=== PATIENT | female | born 1970 ===

== ENCOUNTER 2017-09-23 14:40 | Observation (INO) | payer OTHER ==
[2017-09-23 14:51] VITALS: BMI 30.2
[2017-09-23] MEDS ORDERED: Sodium Chloride 0.9% 1,000 ML IV ONE (15:57)
--- NOTE | 2017-09-23 17:12 | C.PDOC ---
Time Seen by Provider: 09/23/17 15:38 Chief Complaint (Nursing): Abdominal Pain History Per: Patient Onset/Duration Of Symptoms: Days (about 1 week) Current Symptoms Are (Timing): Worse Severity: Moderate Location Of Pain/Discomfort: Suprapubic Radiation Of Pain To:: Back Quality Of Discomfort: "Pain" Associated Symptoms: Fever, Nausea, Back Pain, Urinary Symptoms Alleviating Factors: None Last Bowel Movement: Today Additional History Per: Prior Records Past Medical History Reviewed: Historical Data, Nursing Documentation, Vital Signs Vital Signs: Last Vital Signs Temp 98 F 09/23/17 14:51 Pulse 94 H 09/23/17 14:51 Resp 18 09/23/17 14:51 BP 132/93 H 09/23/17 14:51 Pulse Ox 96 09/23/17 17:12 - Medical History PMH: Anemia, Arthritis, Colonic Polyps (TUBULAR), Depression, Fibromyalgia, Gastritis, HTN, Kidney Stones (BOTH KIDNEYS), Osteoporosis, Chronic Kidney Disease Surgical History: Cholecystectomy, Endoscopy (5 YEARS AGO) Other Surgeries: Hysterectomy. Lap band. - [facility] Procedures EXCISION OF LEFT OVARY, OPEN APPROACH (07/24/16) RELEASE BILATERAL FALLOPIAN TUBES, PERC ENDO APPROACH (07/24/16) RELEASE BILATERAL OVARIES, OPEN APPROACH (07/24/16) RELEASE UTERUS, OPEN APPROACH (07/24/16) RESECTION OF BILATERAL FALLOPIAN TUBES, OPEN APPROACH (07/24/16) RESECTION OF CERVIX, OPEN APPROACH (07/24/16) RESECTION OF UTERUS, OPEN APPROACH (07/24/16) Family History: States: Unknown Family Hx - Social History Hx Alcohol Use: No Hx Substance Use: No - Immunization History Hx Tetanus Toxoid Vaccination: No Hx Influenza Vaccination: No Hx Pneumococcal Vaccination: Yes Review Of Systems Except As Marked, All Systems Reviewed And Found Negative. Constitutional: Positive for: Fever Cardiovascular: Negative for: Chest Pain Respiratory: Negative for: Cough, Shortness of Breath Gastrointestinal: Positive for: Abdominal Pain. Negative for: Vomiting, Diarrhea Genitourinary: Positive for: Dysuria, Frequency Musculoskeletal: Positive for: Back Pain. Negative for: Neck Pain Skin: Negative for: Rash Neurological: Negative for: Weakness, Numbness Physical Exam - Physical Exam Appears: Non-toxic, Other (Uncomfortable) Skin: Normal Color, Warm, Dry, No Rash Head: Atraumatic, Normacephalic Eye(s): bilateral: Normal Inspection, PERRL, EOMI Oral Mucosa: Moist Neck: Normal ROM, Supple Cardiovascular: Rhythm Regular Respiratory: Normal Breath Sounds, No Accessory Muscle Use Gastrointestinal/Abdominal: Tenderness, Distention Back: CVA Tenderness (right) Extremity: Normal ROM Neurological/Psych: Oriented x3, Normal Motor, Normal Sensation ED Course And Treatment - Laboratory Results Result Diagrams: 09/23/17 17:55 09/23/17 17:55 O2 Sat by Pulse Oximetry: 96 Pulse Ox Interpretation: Normal - CT Scan/US CT abd/pelv Other Rad Studies (CT/US): Read By Radiologist, Radiology Report Reviewed CT/US Interpretation: IMPRESSION: The uterus is not identified consistent with hysterectomy. Bilateral complex cystic adnexal lesions possibly ovarian cystic masses (2.9 x 5.5 cm on the right and 5.4 x 3.6 cm on the left). Recommend pelvic ultrasound for further evaluation. Moderate to severe diffuse constipation. Nonobstructing bilateral renal calculi. No hydronephrosis identified. Distended urinary bladder appears otherwise grossly unremarkable. Gastric lap band. Cholecystectomy clips. Additional findings as above. Progress - Interventions Interventions:: Observation, Intravenous fluid - Medications Administered Intravenous: Other (Abx) - Data Reviewed Data Reviewed: Lab, Diagnostic imaging, Old records - Continuity of Care Discussed patient case with:: Patient, ED Nurse, On-call PMD-pt unassigned Disposition Discussed With : Lee Delgado Comment: He accepted pt on hospitalist service. Counseled Patient/Family Regarding: Studies Performed, Diagnosis - Disposition Disposition: HOSPITALIZED Disposition Time: 18:47 Condition: FAIR - Clinical Impression Clinical Impression: Acute pyelonephritis
--- NOTE | 2017-09-23 17:38 | CT ---
PROCEDURE: CT Abdomen and Pelvis without Oral or IV contrast. HISTORY: Abd pain and distension. Urinary symptoms. COMPARISON: CT abdomen and pelvis with IV contrast performed 09/14/16 TECHNIQUE: Contiguous axial images of the abdomen and pelvis. No oral or IV contrast administered. Coronal and Sagittal reformats generated and reviewed. Radiation dose: Total exam DLP = 552.15 mGy-cm. This CT exam was performed using one or more of the following dose reduction techniques: Automated exposure control, adjustment of the mA and/or kV according to patient size, and/or use of iterative reconstruction technique. FINDINGS: There is limited evaluation of the solid organs without the administration of IV contrast. LOWER THORAX: No visible consolidation, pleural effusion, or pneumothorax. Small hiatal hernia/distal esophageal wall thickening. LIVER: Unremarkable unenhanced appearance. GALLBLADDER AND BILE DUCTS: Cholecystectomy clips. PANCREAS: Unremarkable unenhanced appearance. SPLEEN: Unremarkable unenhanced appearance. ADRENALS: Unremarkable unenhanced appearance. KIDNEYS AND URETERS: No hydronephrosis or obstructing renal calculus. Bilateral nonobstructing renal calculi. BLADDER: Distended urinary bladder appears otherwise grossly unremarkable. REPRODUCTIVE: The uterus is not identified consistent with hysterectomy. Bilateral complex cystic adnexal lesions possibly ovarian cystic masses (2.9 x 5.5 cm on the right and 5.4 x 3.6 cm on the left). Recommend pelvic ultrasound for further evaluation. APPENDIX: The appendix appears within normal limits of caliber. No secondary signs of acute appendicitis. BOWEL: Gastric lap band. The stomach is nondistended. Lack of oral contrast limits evaluation for bowel pathology. The bowel loops appear within normal limits of caliber without evidence of intestinal obstruction. Moderate to severe diffuse constipation. PERITONEUM: No significant free fluid. No definite free air. LYMPH NODES: No bulky lymphadenopathy identified. VASCULATURE: No aortic aneurysm. BONES: No acute osseous abnormality is detected. OTHER FINDINGS: None. IMPRESSION: The uterus is not identified consistent with hysterectomy. Bilateral complex cystic adnexal lesions possibly ovarian cystic masses (2.9 x 5.5 cm on the right and 5.4 x 3.6 cm on the left). Recommend pelvic ultrasound for further evaluation. Moderate to severe diffuse constipation. Nonobstructing bilateral renal calculi. No hydronephrosis identified. Distended urinary bladder appears otherwise grossly unremarkable. Gastric lap band. Cholecystectomy clips. Additional findings as above.
[2017-09-23 17:59] LABS: BASO # 0.1 K/uL (0.0-0.2); BASO % 0.7 % (0.0-2.0); EOS # 0.3 K/uL (0.0-0.7); HEMOGLOBIN 10.6 g/dL (11.0-16.0); LYMPH # 2.4 K/uL (1.0-4.3); LYMPH % 26.3 % (20.0-40.0); MEAN CELL VOLUME 75.1 fL (81.0-99.0); MEAN CORPUSCULAR HEMOGLOBIN 23.5 pg (27.0-31.0); MEAN CORPUSCULAR HGB CONC 31.3 g/dL (33.0-37.0); MEAN PLATELET VOLUME 8.6 fL (7.2-11.7); MONO # 0.4 K/uL (0.0-0.8); MONO % 4.5 % (0.0-10.0); NEUT # 5.9 K/uL (1.8-7.0); NEUT % 65.5 % (50.0-75.0); NRBC % 0.1 % (0.0-2.0); RBC 4.5 Mil/uL (3.80-5.20); RED CELL DISTRIBUTION WIDTH 18.6 % (11.5-14.5)
[2017-09-23] MEDS ORDERED: Sodium Chloride 0.9% 1,000 ML ONE (18:05)
[2017-09-23 18:14] LABS: SQUAMOUS EPITHIAL 7 /hpf (0-5); URINE BACTERIA MANY (<OCC); URINE BILIRUBIN NEGATIVE (NEGATIVE); URINE BLOOD NEGATIVE (NEGATIVE); URINE CLARITY Hazy (Clear); URINE COLOR Yellow (YELLOW); URINE GLUCOSE (UA) NORMAL (Normal); URINE LEUKOCYTE ESTERASE 1+ Leu/uL (Negative); URINE PROTEIN NEGATIVE (NEGATIVE); URINE UROBILINOGEN NORMAL mg/dL (0.2-1.0)
[2017-09-23 18:25] LABS: ALB/GLOB RATIO 1.2 (1.0-2.1); ALT/SGPT 19 U/L (9-52); AST/SGOT 28 U/L (14-36); BLOOD UREA NITROGEN 8 mg/dL (7-17); CALCIUM 8.9 mg/dl (8.6-10.4); GFR AFRICAN-AMERICAN > 60; GFR NON-AFRICAN AMERICAN > 60; LIPASE 116 U/L (23-300)
[2017-09-23] MEDS ORDERED: cefTRIAXone IV 1 gm in Dextros 50 ML IVPB STA (18:35)
--- NOTE | 2017-09-23 19:05 | CP.PCM.HP ---
<Samuel Horowitz Delmy - Last Filed: 09/24/17 02:23> History of Present Illness - History of Present Illness History of Present Illness: CC: Back pain, dysuria, fever HPI: Patient is a 46 year old female, with PMHx of recurrent UTIs, ulcerative colitis in remission, tubular polyps, depression, fibromyalgia, gastritis, bilateral nephrolithiasis, osteoporosis, with pertinent hx of hysterectomy (performed bc of fibroids and resulting anemia) in July 2015. Patient states that starting 1 week ago she began having pain on urination, burning and "bladder spasm" and that these symptoms became progressively worse. Of note, she also states that she feels as if she's retaining urine. She also endorsed nausea and subjective fevers. She says this is her 10th UTI since her hysterectomy in 07/2015. She was admitted to [facility] 1 month ago for similar symptoms. Upon discharge she completed her course of antibiotics. She was told to follow-up with Urologist Dr Hannah but was unable to do so because of insurance issues. PMHx: Anemia, Colonic tubular polyps, Depression, Fibromyalgia, Gastritis, EGD, B/l neprolithiasis, Osteoporosis, Dry eye syndrome PSHx: 3 c-sections: no complications; Ureteral stent (2014), Hysterectomy (2016) - total abdominal hysterectomy, bilateral salpingectomy, extensive adhesions from prior c-sections noted, Cholecystectomy, Gastric Lap Band Fam Hx: Aunt with Crohn's disease and Colon CA, 2 cousins with ulcerative colitis Home meds: Gabapentin 600mg PO TID (for fibromyalgia), Feosol 325mg PO QD, Vitamin D 2000u 2 tabs PO QD Allergies: denies Social Hx: tobacco - 1/2 ppd x 2 yrs in 20's; alcohol - occasional glass of wine with dinner; Drugs- denies; Living: [place] - lives with ; Job : works as homemaker Present on Admission - Present on Admission Any Indicators Present on Admission: No Review of Systems - Constitutional Constitutional: Chills, Fever. absent: Weakness - EENT Eyes: absent: Change in Vision - Cardiovascular Cardiovascular: absent: Chest Pain, Chest Pain with Activity, Diaphoresis, Dyspnea on Exertion, Lightheadedness - Respiratory Respiratory: absent: Cough, Hemoptysis, Dyspnea on Exertion, Wheezing - Gastrointestinal Gastrointestinal: Abdominal Pain, Bloating, Nausea. absent: Constipation, Diarrhea, Heartburn - Genitourinary Genitourinary: Change in Urinary Stream, Dysuria, Flank Pain, Urinary Hesitance , Bladder Distension. absent: Hematuria - Musculoskeletal Musculoskeletal: Back Pain - Integumentary Integumentary: absent: Bleeding Lesions Past Patient History - Infectious Disease Hx of Infectious Diseases: None - Past Medical History & Family History Past Medical History?: Yes - Past Social History Smoking Status: Never Smoked - CARDIAC Hx Hypertension: Yes - PULMONARY Hx Respiratory Disorders: No - NEUROLOGICAL Hx Neurological Disorder: Yes - HEENT Hx HEENT Problems: No Other/Comment: CHRONIC DRY EYES. - RENAL Hx Chronic Kidney Disease: Yes Hx Kidney Stones: Yes (BOTH KIDNEYS) - ENDOCRINE/METABOLIC Hx Endocrine Disorders: No - HEMATOLOGICAL/ONCOLOGICAL Hx Anemia: Yes - INTEGUMENTARY Hx Dermatological Problems: Yes Other/Comment: CANCEROUS LESION 3X REMOVED LEFT UPPER BACK. Anal tag - MUSCULOSKELETAL/RHEUMATOLOGICAL Hx Arthritis: Yes Hx Osteoporosis: Yes - GASTROINTESTINAL Hx Gastritis: Yes - GENITOURINARY/GYNECOLOGICAL Hx Genitourinary Disorders: Yes Other/Comment: HX: removed UTERINE FIBROID - PSYCHIATRIC Hx Depression: Yes Hx Substance Use: No - SURGICAL HISTORY Hx Cholecystectomy: Yes - ANESTHESIA Hx Anesthesia: Yes Hx Anesthesia Reactions: No Hx Malignant Hyperthermia: No Meds Allergies/Adverse Reactions: Allergies Allergy/AdvReac Type Severity Reaction Status Date / Time No Known Allergies Allergy Verified 09/23/17 14:50 Physical Exam - Constitutional Appears: No Acute Distress Additional comments: Appeared uncomfortable - Head Exam Head Exam: ATRAUMATIC, NORMAL INSPECTION - Eye Exam Eye Exam: EOMI Pupil Exam: PERRL - ENT Exam ENT Exam: Mucous Membranes Moist - Neck Exam Neck exam: Positive for: Normal Inspection. Negative for: Tenderness - Respiratory Exam Respiratory Exam: Clear to Auscultation Bilateral, NORMAL BREATHING PATTERN. absent: Rales, Rhonchi, Wheezes - Cardiovascular Exam Cardiovascular Exam: REGULAR RHYTHM, +S1, +S2. absent: Bradycardia, Tachycardia , JVD, Systolic Murmur - GI/Abdominal Exam GI & Abdominal Exam: Distended, Firm, Normal Bowel Sounds, Tenderness. absent: Guarding, Hernia, Mass, Organomegaly, Rebound Additional comments: Suprapubic tenderness to deep palpation Distended most prominent in lower quadrants No rebound, no gaurding Normal bowel sounds - Rectal Exam Rectal Exam: Deferred - Exam Exam: Bladder Distension - Extremities Exam Extremities exam: Positive for: normal capillary refill, normal inspection, pedal pulses present. Negative for: pedal edema, tenderness - Back Exam Back exam: CVA tenderness (R), NORMAL INSPECTION. absent: CVA tenderness (L), paraspinal tenderness, rash noted, vertebral tenderness - Neurological Exam Neurological exam: Alert, CN II-XII Intact, Oriented x3 - Skin Skin Exam: Intact, Normal Color, Warm Results - Vital Signs Recent Vital Signs: Last Vital Signs Temp 98 F 09/23/17 14:51 Pulse 94 H 09/23/17 14:51 Resp 18 09/23/17 14:51 BP 132/93 H 09/23/17 14:51 Pulse Ox 96 09/23/17 18:52 - Labs Result Diagrams: 09/23/17 17:55 09/23/17 17:55 Labs: Laboratory Results - last 24 hr 09/23/17 09/23/17 09/23/17 17:55 17:55 18:05 WBC 9.0 RBC 4.50 Hgb 10.6 L Hct 33.8 L MCV 75.1 L MCH 23.5 L MCHC 31.3 L RDW 18.6 H Plt Count 288 MPV 8.6 Neut % (Auto) 65.5 Lymph % (Auto) 26.3 [place] % (Auto) 4.5 Eos % (Auto) 3.0 Baso % (Auto) 0.7 Neut # (Auto) 5.9 Lymph # (Auto) 2.4 [place] # (Auto) 0.4 Eos # (Auto) 0.3 Baso # (Auto) 0.1 Sodium 140 Potassium 3.9 Chloride 105 Carbon Dioxide 22 Anion Gap 17 BUN 8 Creatinine 0.6 L Est GFR ( Amer) > 60 Est GFR (Non-Af Amer) > 60 Random Glucose 84 Calcium 8.9 Total Bilirubin 0.3 AST 28 ALT 19 Alkaline Phosphatase 93 Total Protein 7.4 Albumin 4.0 Globulin 3.4 Albumin/Globulin Ratio 1.2 Lipase 116 Urine Color Yellow Urine Clarity Hazy Urine pH 6.0 Ur Specific [place] 1.008 Urine Protein Negative Urine Glucose (UA) Normal Urine Ketones Negative Urine Blood Negative Urine Nitrate Positive H Urine Bilirubin Negative Urine Urobilinogen Normal Ur Leukocyte Esterase 1+ H Urine WBC (Auto) 10 H Urine RBC (Auto) 2 Ur Squamous Epith Cells 7 H Urine Bacteria Many H Assessment & Plan (1) Recurrent UTI Assessment and Plan: Pt reports ~10th UTI since hysterectomy in 07/2015 Complains of urinary retention in addition to fever, nausea, R>L CVA tenderness , dysuria Afebrile, No leukocytosis Differential includes: Gabapentin induced neurogenic bladder (onset of sx correlate with onset of UTIs), Perimenopausal induced urethral irritation, Anterior bladder prolapse/vaginal prolapse Straight catheterization showed only 300cc of normal appearing urine Urinalysis (+) for Nitrate, Leukocyte esterase, WBCs, Bacteria, (+) for squamous epithelium (contaminated sample?) F/U repeat Urinalysis F/U FSH, LH, Estrogen Level Meds: Tylenol 650mg PO Q6H PRN for temp >100.4 Zofran 4mg IV Q6H PRN for nausea/vomiting Colace 100mg PO BID for constipation Miralax 17g PO ONCE 09/23/17 Ciprofloxacin 500mg PO BID Imaging: CT abd/pelvis w/o contrast: The uterus is not identified consistent with hysterectomy. Bilateral complex cystic adnexal lesions possibly ovarian cystic masses (2.9 x 5.5 cm on the right and 5.4 x 3.6 cm on the left). Recommend pelvic ultrasound for further evaluation. Moderate to severe diffuse constipation. Nonobstructing bilateral renal calculi. No hydronephrosis identified. Distended urinary bladder appears otherwise grossly unremarkable. Status: Acute (2) Fibromyalgia Assessment and Plan: Cont home med Gabapentin 600mg PO TID Status: Chronic Priority: High (3) Prophylactic measure Assessment and Plan: SCDs, Lovenox 40mg SC QD GI propylaxsis not indicated Heart healthy diet Status: Acute <Cole Johnston P - Last Filed: 09/24/17 07:32> Results - Vital Signs Recent Vital Signs: Last Vital Signs Temp 98.5 F 09/24/17 00:28 Pulse 96 H 09/24/17 00:28 Resp 20 09/24/17 00:28 BP 128/85 09/24/17 00:28 Pulse Ox 95 09/24/17 00:28 - Labs Result Diagrams: 09/23/17 17:55 09/23/17 17:55 Labs: Laboratory Results - last 24 hr 09/23/17 09/23/17 09/23/17 17:55 17:55 18:05 WBC 9.0 RBC 4.50 Hgb 10.6 L Hct 33.8 L MCV 75.1 L MCH 23.5 L MCHC 31.3 L RDW 18.6 H Plt Count 288 MPV 8.6 Neut % (Auto) 65.5 Lymph % (Auto) 26.3 [place] % (Auto) 4.5 Eos % (Auto) 3.0 Baso % (Auto) 0.7 Neut # (Auto) 5.9 Lymph # (Auto) 2.4 [place] # (Auto) 0.4 Eos # (Auto) 0.3 Baso # (Auto) 0.1 Sodium 140 Potassium 3.9 Chloride 105 Carbon Dioxide 22 Anion Gap 17 BUN 8 Creatinine 0.6 L Est GFR ( Amer) > 60 Est GFR (Non-Af Amer) > 60 Random Glucose 84 Calcium 8.9 Total Bilirubin 0.3 AST 28 ALT 19 Alkaline Phosphatase 93 Total Protein 7.4 Albumin 4.0 Globulin 3.4 Albumin/Globulin Ratio 1.2 Lipase 116 Urine Color Yellow Urine Clarity Hazy Urine pH 6.0 Ur Specific [place] 1.008 Urine Protein Negative Urine Glucose (UA) Normal Urine Ketones Negative Urine Blood Negative Urine Nitrate Positive H Urine Bilirubin Negative Urine Urobilinogen Normal Ur Leukocyte Esterase 1+ H Urine WBC (Auto) 10 H Urine RBC (Auto) 2 Ur Squamous Epith Cells 7 H Urine Bacteria Many H 09/23/17 22:43 WBC RBC Hgb Hct MCV MCH MCHC RDW Plt Count MPV Neut % (Auto) Lymph % (Auto) [place] % (Auto) Eos % (Auto) Baso % (Auto) Neut # (Auto) Lymph # (Auto) [place] # (Auto) Eos # (Auto) Baso # (Auto) Sodium Potassium Chloride Carbon Dioxide Anion Gap BUN Creatinine Est GFR ( Amer) Est GFR (Non-Af Amer) Random Glucose Calcium Total Bilirubin AST ALT Alkaline Phosphatase Total Protein Albumin Globulin Albumin/Globulin Ratio Lipase Urine Color [place] Urine Clarity Hazy Urine pH 6.0 Ur Specific [place] 1.011 Urine Protein Negative Urine Glucose (UA) Normal Urine Ketones Negative Urine Blood Negative Urine Nitrate Positive H Urine Bilirubin Negative Urine Urobilinogen 4.0 H Ur Leukocyte Esterase 1+ H Urine WBC (Auto) 108 H Urine RBC (Auto) 4 H Ur Squamous Epith Cells 4 Urine Bacteria Rare Attending/Attestation - Attestation I have personally seen and examined this patient.: Yes I have fully participated in the care of the patient.: Yes I have reviewed all pertinent clinical information: Yes Notes (Text): Assessment * Recurrent bladder irritation symptoms responding with antibiotics suggesting atleast secondary or primary uti, incomplete bladder evacuation, increased bladder frequency, suprapubic discomfort, but came as routine visit with these chronic symptoms, without new events. In hospital afebrile, normal wbc count and clinical exam not in distress. DD Since symptoms started after hystrectomy with prior scarring possibility of hypogastric plexus injury, with secondary detrusor and sphinter irritation, and uinary retention DD of permenopausal changes will check fsh, lh and estrogen levels DD of bladder prolapse will need pelvic exam patient differed last night will do this am DD neuropathy by gabapentin 2% in uptodate likely form neuropathy, co relates with duration of increased dose * B/l cystic ovaries should be followed up with f/u usg and complaint coordinator * h/o lap band surg * B/l inflammatory bowel disease not on treatment now Plan FSH, LH, estrogen level f/u culture from catheter sample pelvic exam this am consider changing dosing of gabapentin Pelvic usg Post void bladder scan check if retention > 200, may need second bladder emptying, trial of flomax, vs oxybutynin considering sphincter or detrusor irritability Oral cipro as prior bact has been sensitive and patient is clinically not in severe sepsis. See orders for detail.
[2017-09-23] MEDS ORDERED: cefTRIAXone IV 1 gm in Dextros 50 ML IVPB ONE (19:23)
[2017-09-23 20:25] VITALS: RESP 20
[2017-09-23] MEDS ORDERED: POLYETHYLENE GLYCOL 3350 17 GM/Dose PACKET PO ONE (22:18)
[2017-09-23 22:51] LABS: SQUAMOUS EPITHIAL 4 /hpf (0-5); URINE BACTERIA RARE (<OCC); URINE BILIRUBIN NEGATIVE (NEGATIVE); URINE BLOOD NEGATIVE (NEGATIVE); URINE CLARITY Hazy (Clear); URINE COLOR Amber (YELLOW); URINE GLUCOSE (UA) NORMAL (Normal); URINE LEUKOCYTE ESTERASE 1+ Leu/uL (Negative); URINE PROTEIN NEGATIVE (NEGATIVE)
[2017-09-24 00:28] VITALS: O2SAT 95
[2017-09-24 07:36] LABS: BASO % 0.5 % (0.0-2.0); EOS # 0.3 K/uL (0.0-0.7); EOS % 3.8 % (0.0-4.0); HEMOGLOBIN 10.1 g/dL (11.0-16.0); LYMPH # 3.3 K/uL (1.0-4.3); LYMPH % 37.8 % (20.0-40.0); MEAN CELL VOLUME 73.8 fL (81.0-99.0); MEAN CORPUSCULAR HEMOGLOBIN 24.1 pg (27.0-31.0); MEAN CORPUSCULAR HGB CONC 32.7 g/dL (33.0-37.0); MEAN PLATELET VOLUME 8.7 fL (7.2-11.7); MONO # 0.5 K/uL (0.0-0.8); MONO % 5.9 % (0.0-10.0); NEUT # 4.6 K/uL (1.8-7.0); RBC 4.21 Mil/uL (3.80-5.20); RED CELL DISTRIBUTION WIDTH 18.7 % (11.5-14.5); WHITE BLOOD COUNT 8.9 K/uL (4.8-10.8)
[2017-09-24 07:43] VITALS: BP 121/81; PULSE 83; TEMP 97.8
[2017-09-24 08:03] LABS: ALB/GLOB RATIO 1.2 (1.0-2.1); ALBUMIN 3.6 g/dL (3.5-5.0); ALT/SGPT 22 U/L (9-52); AST/SGOT 23 U/L (14-36); BLOOD UREA NITROGEN 9 mg/dL (7-17); CALCIUM 8.5 mg/dl (8.6-10.4); GFR AFRICAN-AMERICAN > 60; GFR NON-AFRICAN AMERICAN > 60
[2017-09-24 08:27] LABS: FSH 10.2 mIU/mL
[2017-09-24] MEDS ORDERED: Enoxaparin 40 mg Syringe SC SCH (10:00)
--- NOTE | 2017-09-24 11:03 | US ---
HISTORY: bilateral complex ovarian cyst COMPARISON: CT abdomen/ pelvis 09/23/2017 and pelvic ultrasound 08/12/2016 TECHNIQUE: Transabdominal and transvaginal FINDINGS: UTERUS: Status post hysterectomy ENDOMETRIUM: Status post hysterectomy CERVIX: Status post hysterectomy RIGHT OVARY: Measures 3.1 x 3.4 x 3.1 cm. Cm. No solid mass. Complex cystic structure consistent with hydrosalpinx. Curvilinear collection of fluid consistent with this diagnosis. LEFT OVARY: Measures 4.6 x 4.3 x 3.6 cm. No solid mass. Normal flow. Left hydrosalpinx FREE FLUID: No significant free fluid noted. OTHER FINDINGS: None. IMPRESSION: Bilateral hydrosalpinx. No solid adnexal masses. Status post hysterectomy.
--- NOTE | 2017-09-24 13:30 | CP.PCM.PN ---
Subjective - Date & Time of Evaluation Date of Evaluation: 09/24/17 Time of Evaluation: 13:00 - Subjective Subjective: Patient was seen and examined at 1:00 PM 09/24/17 358 A Upon FULL ROS The bilateral lower quadrant pain is much improved NO burning/pain with urination NO changes in color of urine other than clear/yellow NO n/v/d/c NO dysphagia/odynopahgia NO soreness in throat NO cough NO sinus/nasal congestion NO fever/chills NO muscle aches/pains NO joint pain NO chest pain/palpations NO SOB NO MCRAE NO lightheadedness/dizziness NO paresthesias Exam: General: AAOX3, NAD HEENT: NCA, EOMI, PERRLA, NO cervical/supraclavicular/submandibular lymphadenopathy, NO pharyngeal erythema/exudate, Nasal Turbinates are nonerythematous/nonedematous, Oral Mucosa is moist Cardio: NS1 and NS2, NO M/R/G Resp: CTA B/L, NO R/R/W GI: BSx4, Soft, NT, NO HSM, NO guarding/rebound tenderness, Right CVA tenderness with palpation (I believe this is rib pain and not Kidney pain) Ext: Pulses are strong and equal, Capillary Refill is 2 seconds, NO edema Neuro: CN II through XII are grossly intact 1). Recurrent UTI Urine Culture grew Gram Negative Rods CT Abdomen/Pelvis shows nonobstructing bilateral renal calculi, NO hydronephrosis, S/P Gastric Lap Band, S/P Cholecystectomy, S/P Hysterectomy U/S Pelvis/Transvaginal shows bilateral hydrosalpinx 2). Fibomyalgia Gabapantin 600 mg PO TID 3). Vaginal Yeast Infection As per Pelvic Exam performed by Resident Dr. Patton at the time of her exam. Diflucan 150 mg PO x 1 dose 4). Anemia Likely secondary to Iron Deficiency Measure Iron Studies through the clinic Until then Ferrous Sulfate 325 mg PO 1x/day Presenting complaints have significantly improved. Vitals are stable NO WBC Patient is stable for discharge with further management as per outpatient. The following was explained to patient and a copy of these instructions will be needed to be provided to her upon discharge: 1). Schedule urologic examination for Cystoscopy with Dr. Hannah through the [facility]. 2). Stay well hydrated with water throughout the day. YOU MUST GET AT LEAST 3 liters of water daily. 3). Drink at least two 8 ounces of [place] Juice daily. Buy the kind that is low in sugar and does NOT contain High Fructose [place] Syrup. 4). The following prescriptions will need to be filled at your pharmacy on your way home from the hospital and use as directed: Ciprofloxacin 500 mg, 1 tablet by mouth 2x/day (breakfast and dinner) for 7 days , Dispense #14, NO refills Ferrous Sulfate 325 mg, 1 tablet by mouth 1x/day (lunch), Dispense #30, NO refills Gabapentin 600 mg, 1 tablet by mouth 3x/day (breakfast, lunch, dinner), Dispense #90, NO refills 5). When you get your prescriptions filled today at your pharmacy, ask your pharmacist which probiotic that he/she recommends and take every day with lunch for the next 37 days. 6). You are a good person. Take care, be well, and be happy. Lee Delgado D.O. Objective - Vital Signs/Intake and Output Vital Signs (last 24 hours): Temp Pulse Resp BP Pulse Ox 97.8 F 83 20 121/81 95 09/24/17 07:39 09/24/17 07:39 09/24/17 07:39 09/24/17 07:39 09/24/17 00:28 Intake and Output: 09/24/17 09/24/17 06:59 18:59 Intake Total 250 Output Total 300 Balance -50 - Medications Medications: Current Medications Acetaminophen (Tylenol 325mg Tab) 650 mg PO Q6 PRN PRN Reason: Fever >100.4 F Ciprofloxacin (Cipro) 500 mg PO BID [facility] PRN Reason: Protocol Last Admin: 09/24/17 09:14 Dose: 500 mg Docusate Sodium (Colace) 100 mg PO BID [facility] Last Admin: 09/24/17 09:14 Dose: 100 mg Enoxaparin Sodium (Lovenox) 40 mg SC DAILY [facility] Last Admin: 09/24/17 09:15 Dose: 40 mg Gabapentin (Neurontin) 600 mg PO TID [facility] Last Admin: 09/24/17 13:03 Dose: 600 mg Ondansetron HCl (Zofran Inj) 4 mg IVP Q6 PRN PRN Reason: Nausea/Vomiting - Labs Labs: 09/24/17 07:22 09/24/17 07:22
--- NOTE | 2017-09-24 16:15 | CP.PCM.DIS ---
<Shanda Patton E - Last Filed: 09/24/17 16:21> Provider - Provider Date of Admission: 09/23/17 18:52 Attending physician: Cole Johnston MD Time Spent in preparation of Discharge (in minutes): 45 Hospital Course - Lab Results Lab Results: Micro Results 09/23/17 19:30 Urine Urine Culture - Preliminary Gram Negative Kristopher Most Recent Lab Values WBC 8.9 K/uL (4.8-10.8) 09/24/17 07:22 RBC 4.21 Mil/uL (3.80-5.20) 09/24/17 07:22 Hgb 10.1 g/dL (11.0-16.0) L 09/24/17 07:22 Hct 31.0 % (34.0-47.0) L 09/24/17 07:22 MCV 73.8 fL (81.0-99.0) L 09/24/17 07:22 MCH 24.1 pg (27.0-31.0) L 09/24/17 07:22 MCHC 32.7 g/dL (33.0-37.0) L 09/24/17 07:22 RDW 18.7 % (11.5-14.5) H 09/24/17 07:22 Plt Count 283 K/uL (130-400) 09/24/17 07:22 MPV 8.7 fL (7.2-11.7) 09/24/17 07:22 Neut % (Auto) 52.0 % (50.0-75.0) 09/24/17 07:22 Lymph % (Auto) 37.8 % (20.0-40.0) 09/24/17 07:22 [place] % (Auto) 5.9 % (0.0-10.0) 09/24/17 07:22 Eos % (Auto) 3.8 % (0.0-4.0) 09/24/17 07:22 Baso % (Auto) 0.5 % (0.0-2.0) 09/24/17 07:22 Neut # (Auto) 4.6 K/uL (1.8-7.0) 09/24/17 07:22 Lymph # (Auto) 3.3 K/uL (1.0-4.3) 09/24/17 07:22 [place] # (Auto) 0.5 K/uL (0.0-0.8) 09/24/17 07:22 Eos # (Auto) 0.3 K/uL (0.0-0.7) 09/24/17 07:22 Baso # (Auto) 0.0 K/uL (0.0-0.2) 09/24/17 07:22 Sodium 140 mmol/L (132-148) 09/24/17 07:22 Potassium 3.8 mmol/L (3.6-5.2) 09/24/17 07:22 Chloride 106 mmol/L (98-107) 09/24/17 07:22 Carbon Dioxide 22 mmol/L (22-30) 09/24/17 07:22 Anion Gap 15 (10-20) 09/24/17 07:22 BUN 9 mg/dL (7-17) 09/24/17 07:22 Creatinine 0.6 mg/dL (0.7-1.2) L 09/24/17 07:22 Est GFR ( Amer) > 60 09/24/17 07:22 Est GFR (Non-Af Amer) > 60 09/24/17 07:22 Random Glucose 78 mg/dL (65-105) 09/24/17 07:22 Calcium 8.5 mg/dl (8.6-10.4) L 09/24/17 07:22 Total Bilirubin 0.4 mg/dL (0.2-1.3) 09/24/17 07:22 AST 23 U/L (14-36) 09/24/17 07:22 ALT 22 U/L (9-52) 09/24/17 07:22 Alkaline Phosphatase 83 U/L (38-126) 09/24/17 07:22 Total Protein 6.7 g/dL (6.3-8.3) 09/24/17 07:22 Albumin 3.6 g/dL (3.5-5.0) 09/24/17 07:22 Globulin 3.1 gm/dL (2.2-3.9) 09/24/17 07:22 Albumin/Globulin Ratio 1.2 (1.0-2.1) 09/24/17 07:22 Lipase 116 U/L (23-300) 09/23/17 17:55 FSH 3rd Generation 10.2 mIU/mL 09/24/17 07:22 Luteinizing Hormone 13.3 mIU/mL 09/24/17 07:22 Urine Color Soraida (YELLOW) 09/23/17 22:43 Urine Clarity Hazy (Clear) 09/23/17 22:43 Urine pH 6.0 (5.0-8.0) 09/23/17 22:43 Ur Specific [place] 1.011 (1.003-1.030) 09/23/17 22:43 Urine Protein Negative mg/dL (NEGATIVE) 09/23/17 22:43 Urine Glucose (UA) Normal mg/dL (Normal) 09/23/17 22:43 Urine Ketones Negative mg/dL (NEGATIVE) 09/23/17 22:43 Urine Blood Negative (NEGATIVE) 09/23/17 22:43 Urine Nitrate Positive (NEGATIVE) H 09/23/17 22:43 Urine Bilirubin Negative (NEGATIVE) 09/23/17 22:43 Urine Urobilinogen 4.0 mg/dL (0.2-1.0) H 09/23/17 22:43 Ur Leukocyte Esterase 1+ Meri/uL (Negative) H 09/23/17 22:43 Urine WBC (Auto) 108 /hpf (0-5) H 09/23/17 22:43 Urine RBC (Auto) 4 /hpf (0-3) H 09/23/17 22:43 Ur Squamous Epith Cells 4 /hpf (0-5) 09/23/17 22:43 Urine Bacteria Rare (<OCC) 09/23/17 22:43 - Hospital Course Hospital Course: HPI (As per admission): Patient is a 46 year old female, with PMHx of recurrent UTIs, ulcerative colitis in remission, tubular polyps, depression, fibromyalgia, gastritis, bilateral nephrolithiasis, osteoporosis, with pertinent hx of hysterectomy (performed bc of fibroids and resulting anemia) in July 2015. Patient states that starting 1 week ago she began having pain on urination, burning and "bladder spasm" and that these symptoms became progressively worse. Of note, she also states that she feels as if she's retaining urine. She also endorsed nausea and subjective fevers. She says this is her 10th UTI since her hysterectomy in 07/2015. She was admitted to [facility] 1 month ago for similar symptoms. Upon discharge she completed her course of antibiotics. She was told to follow-up with Urologist Dr Hannah but was unable to do so because of insurance issues. Hospital Course: Patient was admitted with the diagnosis of recurrent UTI with UA positive for a UTI and UC positive for gram negative kristopher. Patient was was managed on the appropriate antibiotics. Since admission, patient was afebrile with no leukocytosis. Patient remained stable with no acute issues. On pelvic exam, patient was noted to have white thick discharge, therefore, she was given a dose of diflucan. Patient was deemed stable for discharge. Patient was discharge with appropriate medications and instructions. Pertinent Imaging: CT abd/pelvis w/o contrast: The uterus is not identified consistent with hysterectomy. Bilateral complex cystic adnexal lesions possibly ovarian cystic masses (2.9 x 5.5 cm on the right and 5.4 x 3.6 cm on the left). Recommend pelvic ultrasound for further evaluation. Moderate to severe diffuse constipation. Nonobstructing bilateral renal calculi. No hydronephrosis identified. Distended urinary bladder appears otherwise grossly unremarkable. Transvaginal/Abdomen: Bilateral hydrosalpinx. No solid adnexal masses. Status post hysterectomy This is a brief summary of events. For a complete course, please refer to the medical records Discharge Exam - Head Exam Head Exam: ATRAUMATIC, NORMAL INSPECTION - Eye Exam Eye Exam: EOMI, Normal appearance - ENT Exam ENT Exam: Mucous Membranes Moist - Respiratory Exam Respiratory Exam: Clear to PA & Lateral, NORMAL BREATHING PATTERN. absent: Wheezes, Respiratory Distress - Cardiovascular Exam Cardiovascular Exam: REGULAR RHYTHM, +S1, +S2 - GI/Abdominal Exam GI & Abdominal Exam: Normal Bowel Sounds, Soft. absent: Tenderness - Exam Speculum exam: Cervical Discharge. absent: Vaginal Bleeding, Vaginal Discharge Bimanual exam: NORMAL BIMANUAL EXAM Additional comments: White thick discharge after pelvic exam - Extremities Exam Extremities exam: normal inspection - Neurological Exam Neurological exam: Alert, Oriented x3 - Psychiatric Exam Psychiatric exam: Normal Affect, Normal Mood - Skin Skin Exam: Normal Color Discharge Plan - Discharge Medications Prescriptions: RX: Ciprofloxacin [Cipro] 500 mg PO BID #14 tab RX: Gabapentin [Neurontin] 600 mg PO TID #90 tablet - Follow Up Plan Condition: FAIR Disposition: HOME/ ROUTINE Instructions: Ciprofloxacin (Systemic), Gabapentin, Urinary Tract Infection in Women (DC), Acute Pyelonephritis (DC) Additional Instructions: The following was explained to patient and a copy of these instructions will be needed to be provided to her upon discharge: 1). Schedule urologic examination for Cystoscopy with Dr. Hannah through the [facility]. 2). Stay well hydrated with water throughout the day. YOU MUST GET AT LEAST 3 liters of water daily. 3). Drink at least two 8 ounces of [place] Juice daily. Buy the kind that is low in sugar and does NOT contain High Fructose [place] Syrup. 4). The following prescriptions will need to be filled at your pharmacy on your way home from the hospital and use as directed: Ciprofloxacin 500 mg, 1 tablet by mouth 2x/day (breakfast and dinner) for 7 days , Dispense #14, NO refills Ferrous Sulfate 325 mg, 1 tablet by mouth 1x/day (lunch), Dispense #30, NO refills Gabapentin 600 mg, 1 tablet by mouth 3x/day (breakfast, lunch, dinner), Dispense #90, NO refills 5). When you get your prescriptions filled today at your pharmacy, ask your pharmacist which probiotic that he/she recommends and take every day with lunch for the next 37 days. 6). You are a good person. Take care, be well, and be happy. Referrals: Jimbo Hannah MD [Staff Provider] - <Lee Delgado - Last Filed: 09/24/17 16:48> Provider - Provider Date of Admission: 09/23/17 18:52 Attending physician: Cole Johnston MD Hospital Course - Lab Results Lab Results: Micro Results 09/23/17 19:30 Urine Urine Culture - Preliminary Gram Negative Kristopher Most Recent Lab Values WBC 8.9 K/uL (4.8-10.8) 09/24/17 07:22 RBC 4.21 Mil/uL (3.80-5.20) 09/24/17 07:22 Hgb 10.1 g/dL (11.0-16.0) L 09/24/17 07:22 Hct 31.0 % (34.0-47.0) L 09/24/17 07:22 MCV 73.8 fL (81.0-99.0) L 09/24/17 07:22 MCH 24.1 pg (27.0-31.0) L 09/24/17 07:22 MCHC 32.7 g/dL (33.0-37.0) L 09/24/17 07:22 RDW 18.7 % (11.5-14.5) H 09/24/17 07:22 Plt Count 283 K/uL (130-400) 09/24/17 07:22 MPV 8.7 fL (7.2-11.7) 09/24/17 07:22 Neut % (Auto) 52.0 % (50.0-75.0) 09/24/17 07:22 Lymph % (Auto) 37.8 % (20.0-40.0) 09/24/17 07:22 [place] % (Auto) 5.9 % (0.0-10.0) 09/24/17 07:22 Eos % (Auto) 3.8 % (0.0-4.0) 09/24/17 07:22 Baso % (Auto) 0.5 % (0.0-2.0) 09/24/17 07:22 Neut # (Auto) 4.6 K/uL (1.8-7.0) 09/24/17 07:22 Lymph # (Auto) 3.3 K/uL (1.0-4.3) 09/24/17 07:22 [place] # (Auto) 0.5 K/uL (0.0-0.8) 09/24/17 07:22 Eos # (Auto) 0.3 K/uL (0.0-0.7) 09/24/17 07:22 Baso # (Auto) 0.0 K/uL (0.0-0.2) 09/24/17 07:22 Sodium 140 mmol/L (132-148) 09/24/17 07:22 Potassium 3.8 mmol/L (3.6-5.2) 09/24/17 07:22 Chloride 106 mmol/L (98-107) 09/24/17 07:22 Carbon Dioxide 22 mmol/L (22-30) 09/24/17 07:22 Anion Gap 15 (10-20) 09/24/17 07:22 BUN 9 mg/dL (7-17) 09/24/17 07:22 Creatinine 0.6 mg/dL (0.7-1.2) L 09/24/17 07:22 Est GFR ( Amer) > 60 09/24/17 07:22 Est GFR (Non-Af Amer) > 60 09/24/17 07:22 Random Glucose 78 mg/dL (65-105) 09/24/17 07:22 Calcium 8.5 mg/dl (8.6-10.4) L 09/24/17 07:22 Total Bilirubin 0.4 mg/dL (0.2-1.3) 09/24/17 07:22 AST 23 U/L (14-36) 09/24/17 07:22 ALT 22 U/L (9-52) 09/24/17 07:22 Alkaline Phosphatase 83 U/L (38-126) 09/24/17 07:22 Total Protein 6.7 g/dL (6.3-8.3) 09/24/17 07:22 Albumin 3.6 g/dL (3.5-5.0) 09/24/17 07:22 Globulin 3.1 gm/dL (2.2-3.9) 09/24/17 07:22 Albumin/Globulin Ratio 1.2 (1.0-2.1) 09/24/17 07:22 Lipase 116 U/L (23-300) 09/23/17 17:55 FSH 3rd Generation 10.2 mIU/mL 09/24/17 07:22 Luteinizing Hormone 13.3 mIU/mL 09/24/17 07:22 Urine Color [place] (YELLOW) 09/23/17 22:43 Urine Clarity Hazy (Clear) 09/23/17 22:43 Urine pH 6.0 (5.0-8.0) 09/23/17 22:43 Ur Specific [place] 1.011 (1.003-1.030) 09/23/17 22:43 Urine Protein Negative mg/dL (NEGATIVE) 09/23/17 22:43 Urine Glucose (UA) Normal mg/dL (Normal) 09/23/17 22:43 Urine Ketones Negative mg/dL (NEGATIVE) 09/23/17 22:43 Urine Blood Negative (NEGATIVE) 09/23/17 22:43 Urine Nitrate Positive (NEGATIVE) H 09/23/17 22:43 Urine Bilirubin Negative (NEGATIVE) 09/23/17 22:43 Urine Urobilinogen 4.0 mg/dL (0.2-1.0) H 09/23/17 22:43 Ur Leukocyte Esterase 1+ Meri/uL (Negative) H 09/23/17 22:43 Urine WBC (Auto) 108 /hpf (0-5) H 09/23/17 22:43 Urine RBC (Auto) 4 /hpf (0-3) H 09/23/17 22:43 Ur Squamous Epith Cells 4 /hpf (0-5) 09/23/17 22:43 Urine Bacteria Rare (<OCC) 09/23/17 22:43 Attending/Attestation - Attestation I have personally seen and examined this patient.: Yes I have fully participated in the care of the patient.: Yes I have reviewed all pertinent clinical information, including history, physical exam and plan: Yes Notes (Text): 09/24/17 16:46 Please also see my progress note. Exam, assessment and plan, and discharge instructions were gone over with the resident. Lee Delgado D.O.
== END 2017-09-24 15:41 | disposition home or self-care (01) ==
LOC: C.ER 14:40 → C.3T 18:52
PROVIDERS: ADMIT Internal Medicine; ATTEND Internal Medicine
DX: N39.0 Urinary tract infection, site not specified (principal); Z87.442 Personal history of urinary calculi; Z86.010 Personal history of colon polyps; M81.0 Age-related osteoporosis without current pathological fracture; M79.7 Fibromyalgia; I12.9 Hypertensive chronic kidney disease with stage 1 through stage 4 chronic kidney disease, or unspecified chronic kidney disease; N18.9 Chronic kidney disease, unspecified; M19.90 Unspecified osteoarthritis, unspecified site; F32.9 Major depressive disorder, single episode, unspecified; D64.9 Anemia, unspecified; K59.00 Constipation, unspecified; N20.0 Calculus of kidney; Z98.84 Bariatric surgery status; Z87.440 Personal history of urinary (tract) infections; Z79.899 Other long term (current) drug therapy; Z87.891 Personal history of nicotine dependence; H04.123 Dry eye syndrome of bilateral lacrimal glands; N70.11 Chronic salpingitis; B37.3 Candidiasis of vulva and vagina
CPT/HCPCS: 36415; 74176; 76830; 76856; 80053; 81001; 82672; 83001; 83002; 83690; 85025; 87040; 87086; 87181; 96361; 96365; 96372; 99283; G0378; J0696; J1650; J7040